=== PATIENT | male | born 1960 | race Caucasian/White ===

== ENCOUNTER 2019-04-13 10:44 | Emergency (ER) | payer BC ==
[2019-04-13] MEDS ORDERED: VALSARTAN320 MG PO (11:14)
[2019-04-13] MEDS ORDERED: LEXAPRO10 MG PO (11:14)
[2019-04-13] MEDS ORDERED: DEXILANT60 M1 PO (11:15)
[2019-04-13 11:40] LABS: BASO # 0.1 10*3/uL (0.0-0.1); EOS # 0.3 10*3/uL (0.0-0.4); EOS % 5.3 % (1.0-4.0); HEMATOCRIT 45.4 % (42.0-52.0); HEMOGLOBIN 16.4 g/dl (14.0-18.0); LYMPH # 1.5 10*3/uL (1.3-4.4); LYMPH % 23.8 % (27.0-41.0); MEAN CELL VOLUME 93.2 fl (80.0-94.0); MEAN CORPUSCULAR HGB 33.7 pg (27.0-31.0); MEAN CORPUSCULAR HGB CONC 36.1 g/dl (33.0-37.0); MEAN PLATELET VOLUME 9.7 fl (9.6-12.3); MONO # 0.5 10*3/uL (0.1-1.0); MONO % 8.9 % (3.0-9.0); NEUT # 3.7 10*3/uL (2.3-7.9); NEUT % 60.7 % (47.0-73.0); PLATELET COUNT AUTOMATED 197 10*3/uL (130-400); RED BLOOD COUNT 4.87 10*6/uL (4.50-5.90); RED CELL DISTRI WIDTH 11.2 % (0-14.5); WHITE BLOOD COUNT 6.1 10*3/uL (4.8-10.8)
[2019-04-13 11:52] LABS: ACT PARTIAL THROMBO TIME 25.1 SECONDS (20.0-32.1)
[2019-04-13 11:57] LABS: ALBUMIN 3.9 gm/dl (3.1-4.5); ALKALINE PHOSPHATASE 88 U/L (45-117); BUN 12 mg/dl (7-24); CHLORIDE 103 mmol/L (98-107); CREATININE 0.83 mg/dL (0.70-1.30); POTASSIUM 4.4 mmol/L (3.5-5.1); SGOT/AST 58 IU/L (3-35); SGPT/ALT 86 U/L (12-78); SODIUM 134 mmol/L (136-145); TOTAL PROTEIN 7.1 gm/dL (6.4-8.2)
[2019-04-13 11:59] LABS: ETHYL ALCOHOL < 3.0 mg/dl (<3); TROPONIN I < 0.015 ng/ml (<0.045)
[2019-04-13] MEDS ORDERED: GLUCOPHAGE500 M1 PO (12:26)
[2019-04-13 12:31] LABS: URINE AMPHETAMINES < 1000 (1000ng/ml); URINE BARBITURATES < 200 (200ng/ml); URINE BENZODIAZEPINES < 200 (200ng/ml); URINE CANNABINOIDS (THC) < 50 (50ng/ml); URINE COCAINE < 300 (300ng/ml); URINE METHADONE < 300 (300ng/ml); URINE OPIATES < 300 (300ng/ml)
[2019-04-13 12:34] LABS: URINE PHENCYCLIDINE < 25 (25ng/ml)
[2019-04-13 12:57] LABS: CLARITY SL CLOUDY (CLEAR); COLOR YELLOW (YELLOW)
[2019-04-13 12:58] LABS: BACTERIA 1+; BILIRUBIN NEGATIVE (NEGATIVE); BLOOD NEGATIVE (NEGATIVE); GLUCOSE 3+ (NEGATIVE); KETONE 3+ (NEGATIVE); LEUKO ESTERASE NEGATIVE (NEGATIVE); MUCOUS TRACE; NITRITE NEGATIVE (NEGATIVE); UROBILINOGEN 0.2 E.U./dl (0.2-1.0)
== END 2019-04-13 12:33 | disposition home or self-care (01) ==
LOC: ED 10:44
PROVIDERS: Emergency Medicine
DX: E11.9 Type 2 diabetes mellitus without complications (principal); R74.0 Nonspecific elevation of levels of transaminase and lactic acid dehydrogenase [LDH]; K21.9 Gastro-esophageal reflux disease without esophagitis; Z79.899 Other long term (current) drug therapy; I10 Essential (primary) hypertension

== ENCOUNTER → 2019-04-27 | Outpatient (CLI) | payer BC ==
[~2019-04-27] MED LIST: DEXILANT60 M1 PO; GLUCOPHAGE500 M1 PO; LEXAPRO10 MG PO; VALSARTAN320 MG PO
[2019-04-27 14:31] LABS: ALBUMIN 3.7 gm/dl (3.1-4.5); ALKALINE PHOSPHATASE 85 U/L (45-117); BUN 12 mg/dl (7-24); CHLORIDE 101 mmol/L (98-107); CREATININE 0.94 mg/dL (0.70-1.30); POTASSIUM 3.8 mmol/L (3.5-5.1); SGOT/AST 49 IU/L (3-35); SGPT/ALT 82 U/L (12-78); SODIUM 135 mmol/L (136-145); TOTAL PROTEIN 6.9 gm/dL (6.4-8.2)
[2019-04-27 14:38] LABS: VITAMIN D, 25-HYDROXY 26.2 ng/mL (30-100)
== END | disposition home or self-care (01) ==
LOC: RESCLI 12:48
PROVIDERS: Student in an Organized Health Care Education/Training Program
DX: Z00.00 Encounter for general adult medical examination without abnormal findings (principal); Z12.11 Encounter for screening for malignant neoplasm of colon; Z12.5 Encounter for screening for malignant neoplasm of prostate; I10 Essential (primary) hypertension; F32.9 Major depressive disorder, single episode, unspecified; K21.9 Gastro-esophageal reflux disease without esophagitis; Z79.84 Long term (current) use of oral hypoglycemic drugs; Z79.899 Other long term (current) drug therapy